=== PATIENT | male | born 1960 | race Caucasian/White ===

== ENCOUNTER 2024-04-25 13:13 | Emergency (ER) | payer OTHER ==
[~2024-04-25] VITALS: Ht 180.3 cm; Wt 78.2 kg
[2024-04-25 13:26] VITALS: BP 168/114; PULSE 120; RESP 18; TEMP 97.5; O2SAT 94
[2024-04-25] MEDS ORDERED: SERT25TA84 PO (15:28)
[2024-04-25] MEDS ORDERED: ATEN50TA8 PO (15:28)
== END 2024-04-25 15:43 | disposition home or self-care (01) ==
LOC: ER 13:14
DX: S60.222A Contusion of left hand, initial encounter (principal); F32.A Depression, unspecified; I10 Essential (primary) hypertension; Z76.0 Encounter for issue of repeat prescription; W01.0XXA Fall on same level from slipping, tripping and stumbling without subsequent striking against object, initial encounter; Y92.410 Unspecified street and highway as the place of occurrence of the external cause; Y93.01 Activity, walking, marching and hiking; Y99.8 Other external cause status
CPT/HCPCS: 29125; 73130; 99283